=== PATIENT | male | born 1980 | race Caucasian/White ===

== ENCOUNTER 2019-05-23 01:35 | Emergency (ER) | payer MEDICAID, OTHER ==
[~2019-05-23] VITALS: Ht 172.7 cm; Wt 80.0 kg
[~2019-05-23 01:35] MED LIST: CYCL10TA7 PO; IBUP-1542 PO
[2019-05-23 01:38] VITALS: BP 135/83; PULSE 76; RESP 18; Ht 172.7 cm; Wt 80.0 kg
[2019-05-23] MEDS ORDERED: KETOROLAC 30 MG INJ IM STA (02:10)
== END 2019-05-23 02:25 | disposition home or self-care (01) ==
LOC: FTE 01:35
DX: S46.812A Strain of other muscles, fascia and tendons at shoulder and upper arm level, left arm, initial encounter (principal); X50.0XXA Overexertion from strenuous movement or load, initial encounter; Y92.000 Kitchen of unspecified non-institutional (private) residence as the place of occurrence of the external cause
CPT/HCPCS: 96372; J1885; Z7502